=== PATIENT | female | born 1965 | race Two or more races ===

== ENCOUNTER 2017-08-21 07:26 | Inpatient (IN) | payer OTHER ==
[~2017-08-21] VITALS: Ht 160 cm; Wt 89.8 kg
[~2017-08-21 07:26] MED LIST: DOCU-109 PO; FERR-26 PO; IBUP-1060 PO; IBUPROFEN PO; LISI-338 PO; OXYC-323 PO
--- NOTE | 2017-08-21 07:49 | PHYS DOC ---
Past Medical History Past Medical History: No Pertinent History Past Surgical History: No Surgical History Alcohol Use: None Drug Use: None Adult General Chief Complaint Chief Complaint: GENERAL COMPLAINT HPI HPI Patient is a 52 year old female with a history of hypertension presents the ED complaining of dysuria and left back pain 3 days. Patient states that she has had dysuria for 8 days. Describes pain as sharp. Rates pain 8 out of 10. States she has been treated with Cipro 1 day by her PCP, Dr. Mcneal. States she vomited when she takes the medicine. Denies chest pain, shortness of breath, vaginal discharge/bleeding, fever, dizziness, syncope or hematuria. Review of Systems Review of Systems Constitutional: Denies fever or chills [] Eyes: Denies change in visual acuity, redness, or eye pain [] HENT: Denies nasal congestion or sore throat [] Respiratory: Denies cough or shortness of breath [] Cardiovascular: No additional information not addressed in HPI [] GI: Denies abdominal pain, nausea, vomiting, bloody stools or diarrhea [] : Complains of dysuria. Denies hematuria [] Musculoskeletal: Denies back pain or joint pain [] Integument: Denies rash or skin lesions [] Neurologic: Denies headache, focal weakness or sensory changes [] Endocrine: Denies polyuria or polydipsia [] Current Medications Current Medications Current Medications Medications (Trade) Dose Ordered Sig/Steve Start Time Stop Time Status Last Admin Dose Admin Ceftriaxone Sodium 50 ml @ 100 mls/hr 1X ONCE 08/21/17 09:30 08/21/17 09:59 DC 08/21/17 09:41 100 MLS/HR Fentanyl Citrate (Fentanyl 2ml Vial) 50 mcg 1X ONCE 08/21/17 08:00 08/21/17 08:01 DC 08/21/17 08:00 50 MCG Ondansetron HCl (Zofran) 4 mg 1X ONCE 08/21/17 08:00 08/21/17 08:01 DC 08/21/17 08:00 4 MG Sodium Chloride 1,000 ml @ 1,000 mls/hr 1X ONCE 08/21/17 09:15 08/21/17 10:14 DC 08/21/17 09:07 1,000 MLS/HR Allergies Allergies Allergies Coded Allergies Type Severity Reaction Last Updated Verified No Known Drug Allergies 01/04/16 No Physical Exam Physical Exam Constitutional: Well developed, well nourished, no acute distress, non-toxic appearance. [] HENT: Normocephalic, atraumatic, bilateral external ears normal, oropharynx moist, no oral exudates, nose normal. [] Eyes: PERRLA, EOMI, conjunctiva normal, no discharge. [] Neck: Normal range of motion, no tenderness, supple, no stridor. [] Cardiovascular:Heart rate regular rhythm, no murmur [] Lungs & Thorax: Bilateral breath sounds clear to auscultation [] Abdomen: Bowel sounds normal, soft, MILD SUPRAPUBIC TENDERNESS, no masses, no pulsatile masses. [] Skin: Warm, dry, no erythema, no rash. [] Back: No tenderness, no CVA tenderness. [] Extremities: No tenderness, no cyanosis, no clubbing, ROM intact, no edema. [] Neurologic: Alert and oriented X 3, normal motor function, normal sensory function, no focal deficits noted. [] Psychologic: Affect normal, judgement normal, mood normal. [] Current Patient Data Vital Signs Vital Signs Date Time Temp Pulse Resp B/P (MAP) Pulse Ox O2 Delivery O2 Flow Rate FiO2 08/21/17 09:30 80 18 90/55 (67) 95 Room Air 08/21/17 07:49 98.1 98.1 Lab Values Laboratory Tests Test 08/21/17 07:40 08/21/17 08:05 Urine Collection Type Unknown Urine Color Patti Urine Clarity Cloudy Urine pH 5.5 Urine Specific [place] 1.020 Urine Protein 100 mg/dL (NEG-TRACE) Urine Glucose (UA) Negative mg/dL (NEG) Urine Ketones (Stick) Negative mg/dL (NEG) Urine Blood Trace (NEG) Urine Nitrite Negative (NEG) Urine Bilirubin Negative (NEG) Urine Urobilinogen Dipstick 1.0 mg/dL (0.2 mg/dL) Urine Leukocyte Esterase Moderate (NEG) Urine RBC 0 /HPF (0-2) Urine WBC 5-10 /HPF (0-4) Urine Squamous Epithelial Cells Many /LPF Urine Bacteria Mod /HPF (0-FEW) Urine Test Negative (NEG) White Blood Count 16.0 x10^3/uL (4.0-11.0) H Red Blood Count 4.69 x10^6/uL (3.50-5.40) Hemoglobin 13.2 g/dL (12.0-15.5) Hematocrit 38.6 % (36.0-47.0) Mean Corpuscular Volume 82 fL (79-100) Mean Corpuscular Hemoglobin 28 pg (25-35) Mean Corpuscular Hemoglobin Concent 34 g/dL (31-37) Red Cell Distribution Width 14.7 % (11.5-14.5) H Platelet Count 183 x10^3/uL (140-400) Neutrophils (%) (Auto) 86 % (31-73) H Lymphocytes (%) (Auto) 3 % (24-48) L Monocytes (%) (Auto) 11 % (0-9) H Eosinophils (%) (Auto) 0 % (0-3) Basophils (%) (Auto) 0 % (0-3) Neutrophils # (Auto) 13.8 x10^3uL (1.8-7.7) H Lymphocytes # (Auto) 0.5 x10^3/uL (1.0-4.8) L Monocytes # (Auto) 1.7 x10^3/uL (0.0-1.1) H Eosinophils # (Auto) 0.0 x10^3/uL (0.0-0.7) Basophils # (Auto) 0.0 x10^3/uL (0.0-0.2) Segmented Neutrophils % 80 % (35-66) H Band Neutrophils % 7 % (0-9) Lymphocytes % 4 % (24-48) L Monocytes % 9 % (0-10) Platelet Estimate Adequate (ADEQUATE) Sodium Level 135 mmol/L (136-145) L Potassium Level 3.8 mmol/L (3.5-5.1) Chloride Level 97 mmol/L (98-107) L Carbon Dioxide Level 27 mmol/L (21-32) Anion Gap 11 (6-14) Blood Urea Nitrogen 36 mg/dL (7-20) H Creatinine 2.3 mg/dL (0.6-1.0) H Estimated GFR (Cockcroft-Gault) 22.4 BUN/Creatinine Ratio 16 (6-20) Glucose Level 109 mg/dL (70-99) H Calcium Level 8.7 mg/dL (8.5-10.1) Total Bilirubin 1.1 mg/dL (0.2-1.0) H Aspartate Amino Transferase (AST) 66 U/L (15-37) H Alanine Aminotransferase (ALT) 35 U/L (14-59) Alkaline Phosphatase 96 U/L (46-116) Total Protein 7.8 g/dL (6.4-8.2) Albumin 2.9 g/dL (3.4-5.0) L Albumin/Globulin Ratio 0.6 (1.0-1.7) L Laboratory Tests 08/21/17 08:05 Laboratory Tests 08/21/17 08:05 EKG EKG [] Radiology/Procedures Radiology/Procedures [] Course & Med Decision Making Course & Med Decision Making Pertinent Labs and Imaging studies reviewed. (See chart for details) []Patient given Rocephin and 2 L of fluids in ED. Patient improved. Patient resting comfortably at this time. Discussed case with patient's PCP, Dr. Mcneal. Agrees to admission and further management patient. Patient stable for admission. Dragon Disclaimer Dragon Disclaimer This electronic medical record was generated, in whole or in part, using a voice recognition dictation system. Departure Departure Impression: Primary Impression: Pyelonephritis Disposition: ADMITTED INPATIENT Admitting Physician: Wei Mcneal Referrals: WEI MCNEAL MD (PCP) BRENDA TYLER Aug 21, 2017 07:49
[2017-08-21] MEDS ORDERED: fentaNYL PF VIAL 100 MCG/2 ML VIAL IV ONE (08:00)
[2017-08-21] MEDS ORDERED: ONDANSETRON PF 4 MG/2 ML VIAL. IV ONE (08:00)
[2017-08-21 08:12] LABS: BILIRUBIN,URINE NEGATIVE (NEG); GLUCOSE,URINE NEGATIVE (NEG); NITRITE,URINE NEGATIVE (NEG); PH,URINE 5.5; PROTEIN,URINE 100 mg/dL (NEG-TRACE)
[2017-08-21 08:24] LABS: BACTERIA,URINE MOD /HPF (0-FEW); RBC,URINE 0 /HPF (0-2)
[2017-08-21 08:25] LABS: SQUAMOUS EPITHELIAL CELL,UR MANY /LPF
[2017-08-21 08:31] LABS: BASO % 0 % (0-3); CALCIUM 8.7 mg/dL (8.5-10.1); CREATININE 2.3 mg/dL (0.6-1.0); EOS % 0 % (0-3); GFR 22.4; HEMATOCRIT 38.6 % (36.0-47.0); HEMOGLOBIN 13.2 g/dL (12.0-15.5); LYMPH # 0.5 x10^3/uL (1.0-4.8); LYMPH % 3 % (24-48); MEAN CORPUSCULAR HEMOGLOBIN 28 pg (25-35); MEAN CORPUSCULAR HGB CONC 34 g/dL (31-37); MEAN CORPUSCULAR VOLUME 82 fL (79-100); MONO % 11 % (0-9); NEUT % 86 % (31-73); PLATELET COUNT 183 x10^3/uL (140-400); POTASSIUM 3.8 mmol/L (3.5-5.1); RED BLOOD COUNT 4.69 x10^6/uL (3.50-5.40); RED CELL DISTRIBUTION WIDTH 14.7 % (11.5-14.5)
[2017-08-21 08:38] LABS: ALBUMIN 2.9 g/dL (3.4-5.0); ALBUMIN/GLOBULIN RATIO 0.6 (1.0-1.7); TOTAL BILIRUBIN 1.1 mg/dL (0.2-1.0); TOTAL PROTEIN 7.8 g/dL (6.4-8.2)
[2017-08-21] MEDS ORDERED: IV NORMAL SALINE 1000ML BAG 1,000 ML IV ONE (09:15)
[2017-08-21 09:55] LABS: NEG OBC UR NEG; POS OBC UR POS
[2017-08-21] MEDS ORDERED: ONDANSETRON PF 4 MG/2 ML VIAL. IV PRN (10:45)
[2017-08-21 10:54] LABS: PLT ESTIMATE ADEQUATE (ADEQUATE)
[2017-08-21 11:15] VITALS: BP 82/40
[2017-08-21 11:30] VITALS: BP 82/40
[2017-08-21] MEDS ORDERED: LISI10TA2 PO (11:33)
[2017-08-21] MEDS ORDERED: FERR-26 PO (11:33)
[2017-08-21] MEDS ORDERED: DICL75TA PO (11:33)
[2017-08-21] MEDS ORDERED: IV NORMAL SALINE 1000ML BAG 1,000 ML IV SCH (11:50)
[2017-08-21] MEDS ORDERED: IV NORMAL SALINE 500ML BAG 500 ML IV ONE (12:30)
[2017-08-21 14:30] VITALS: BP 83/42
[2017-08-21] MEDS: HYDROcodone/APAP 5/325MG 1 TAB TABLET PO PRN ×2 (14:31→22:21)
[2017-08-21 19:00] VITALS: BP 95/54
--- NOTE | 2017-08-21 19:31 | HP ---
ADMIT DATE: 08/21/2017 CHIEF COMPLAINT: Left-sided back pain and dysuria as well as fatigue and dizziness. HISTORY OF PRESENT ILLNESS AND HOSPITAL COURSE: This patient is a 52-year-old female who complains of sweating and dizziness for 3-4 days prior to admission, she was seen in the office, was found to have UTI and possible pyelonephritis. She was treated with p.o. Cipro. Unfortunately, she was unable to tolerate this medication and unable to tolerate p.o. well. Therefore, she was deferred to the Emergency Room where she was found to have significant evidence of pyelonephritis as well as ongoing acute renal failure due to prerenal azotemia. Due to severity of symptoms and the patient's inability to take p.o. medication, she was admitted for IV fluids and IV antibiotics. PAST MEDICAL HISTORY: Significant for: 1. Hypertension. 2. Anemia. MEDICATIONS ON ADMISSION: Lisinopril 10 mg daily, diclofenac 75 mg b.i.d., iron 325 mg daily. PAST SURGICAL HISTORY: Significant for tubal ligation. FAMILY HISTORY: Significant for mother who suffered with anemia, is now and the father who is with history of cirrhosis. SOCIAL HISTORY: The patient has never smoked. She does not use alcohol. She lives with her spouse and children. 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 The patient is status post bilateral tubal ligation. REVIEW OF SYSTEMS: Significant for cold, chills, hot flashes, dizziness, dysuria and flank pain. She has had some dyspepsia and nausea, but no diarrhea. She denies cough or congestion. PHYSICAL EXAMINATION: GENERAL: This is a well-nourished, well-developed, female in mild distress. She is alert and oriented x 3. HEENT: Benign. NECK: Supple, without JVD or bruit. CARDIAC: Regular rate and rhythm. LUNGS: Clear. ABDOMEN: Soft with tenderness in the area. She has significant tenderness in the flank area on the right and left with left slightly greater. EXTREMITIES: 2+ pulses without significant edema. NEUROLOGIC: Intact. ASSESSMENT: 1. Pyelonephritis. 2. Suspected sepsis. 3. Acute renal failure. 4. Mild protein malnutrition. PLAN: To proceed with IV fluids, IV antibiotics and monitor the patient's symptoms. NETO TRAN MD DR: Gemma JOB#: [id number] / [id number]
[2017-08-21 23:00] VITALS: BP 110/52
[2017-08-22 03:00] VITALS: BP 93/48
[2017-08-22 06:14] LABS: BASO % 0 % (0-3); EOS % 0 % (0-3); HEMATOCRIT 34.5 % (36.0-47.0); HEMOGLOBIN 11.6 g/dL (12.0-15.5); LYMPH # 1.1 x10^3/uL (1.0-4.8); LYMPH % 9 % (24-48); MEAN CORPUSCULAR HEMOGLOBIN 28 pg (25-35); MEAN CORPUSCULAR HGB CONC 34 g/dL (31-37); MEAN CORPUSCULAR VOLUME 83 fL (79-100); MONO % 15 % (0-9); NEUT % 77 % (31-73); PLATELET COUNT 184 x10^3/uL (140-400); RED BLOOD COUNT 4.16 x10^6/uL (3.50-5.40); WHITE BLOOD COUNT 12.4 x10^3/uL (4.0-11.0)
[2017-08-22 06:37] LABS: ALBUMIN 2.3 g/dL (3.4-5.0); ALBUMIN/GLOBULIN RATIO 0.5 (1.0-1.7); CREATININE 1.1 mg/dL (0.6-1.0); GFR 52.6; POTASSIUM 3.8 mmol/L (3.5-5.1); TOTAL BILIRUBIN 0.6 mg/dL (0.2-1.0); TOTAL PROTEIN 6.5 g/dL (6.4-8.2)
[2017-08-22 07:00] VITALS: BP 108/56
[2017-08-22] MEDS: HYDROcodone/APAP 5/325MG 1 TAB TABLET PO PRN (08:04)
[2017-08-22 11:00] VITALS: BP 112/70
--- NOTE | 2017-08-22 12:58 | PDOC ---
PROGRESS NOTES Subjective Subjective Patient feels better but still having flank pain. urine clx still pending and low grade fever ongoing. Objective Objective Vital Signs Date Time Temp Pulse Resp B/P (MAP) Pulse Ox O2 Delivery O2 Flow Rate FiO2 08/22/17 11:00 97.9 76 18 112/70 (84) 97 Room Air 97.9 Intake and Output 08/23/17 07:00 Intake Total 150 ml Output Total 200 ml Balance -50 ml Intake Oral 100 ml IV Total 50 ml Output Urine Total 200 ml Physical Exam Abdomen: Normal bowel sounds, Other (bilateral flank pain) Heart: Regular rate Extremities: No edema General: Alert Assessment Assessment 1. Pyelonephritis. 2. Suspected sepsis. 3. Acute renal failure. 4. Mild protein malnutrition. Plan Plan of Care Await urine Clx Check renal sono continue antibx and fluids Comment Review of Relevant I have reviewed the following items jayson (where applicable) has been applied. Labs Laboratory Tests Test 08/21/17 07:40 08/21/17 08:05 08/21/17 09:52 08/22/17 04:25 Urine Collection Type Unknown Urine Color Patti Urine Clarity Cloudy Urine pH 5.5 Urine Specific [place] 1.020 Urine Protein 100 mg/dL (NEG-TRACE) Urine Glucose (UA) Negative mg/dL (NEG) Urine Ketones (Stick) Negative mg/dL (NEG) Urine Blood Trace (NEG) Urine Nitrite Negative (NEG) Urine Bilirubin Negative (NEG) Urine Urobilinogen Dipstick 1.0 mg/dL (0.2 mg/dL) Urine Leukocyte Esterase Moderate (NEG) Urine RBC 0 /HPF (0-2) Urine WBC 5-10 /HPF (0-4) Urine Squamous Epithelial Cells Many /LPF Urine Bacteria Mod /HPF (0-FEW) Urine Test Negative (NEG) White Blood Count 16.0 x10^3/uL (4.0-11.0) 12.4 x10^3/uL (4.0-11.0) Red Blood Count 4.69 x10^6/uL (3.50-5.40) 4.16 x10^6/uL (3.50-5.40) Hemoglobin 13.2 g/dL (12.0-15.5) 11.6 g/dL (12.0-15.5) Hematocrit 38.6 % (36.0-47.0) 34.5 % (36.0-47.0) Mean Corpuscular Volume 82 fL (79-100) 83 fL (79-100) Mean Corpuscular Hemoglobin 28 pg (25-35) 28 pg (25-35) Mean Corpuscular Hemoglobin Concent 34 g/dL (31-37) 34 g/dL (31-37) Red Cell Distribution Width 14.7 % (11.5-14.5) 15.0 % (11.5-14.5) Platelet Count 183 x10^3/uL (140-400) 184 x10^3/uL (140-400) Neutrophils (%) (Auto) 86 % (31-73) 77 % (31-73) Lymphocytes (%) (Auto) 3 % (24-48) 9 % (24-48) Monocytes (%) (Auto) 11 % (0-9) 15 % (0-9) Eosinophils (%) (Auto) 0 % (0-3) 0 % (0-3) Basophils (%) (Auto) 0 % (0-3) 0 % (0-3) Neutrophils # (Auto) 13.8 x10^3uL (1.8-7.7) 9.5 x10^3uL (1.8-7.7) Lymphocytes # (Auto) 0.5 x10^3/uL (1.0-4.8) 1.1 x10^3/uL (1.0-4.8) Monocytes # (Auto) 1.7 x10^3/uL (0.0-1.1) 1.8 x10^3/uL (0.0-1.1) Eosinophils # (Auto) 0.0 x10^3/uL (0.0-0.7) 0.0 x10^3/uL (0.0-0.7) Basophils # (Auto) 0.0 x10^3/uL (0.0-0.2) 0.0 x10^3/uL (0.0-0.2) Segmented Neutrophils % 80 % (35-66) Band Neutrophils % 7 % (0-9) Lymphocytes % 4 % (24-48) Monocytes % 9 % (0-10) Platelet Estimate Adequate (ADEQUATE) Sodium Level 135 mmol/L (136-145) 137 mmol/L (136-145) Potassium Level 3.8 mmol/L (3.5-5.1) 3.8 mmol/L (3.5-5.1) Chloride Level 97 mmol/L (98-107) 103 mmol/L (98-107) Carbon Dioxide Level 27 mmol/L (21-32) 26 mmol/L (21-32) Anion Gap 11 (6-14) 8 (6-14) Blood Urea Nitrogen 36 mg/dL (7-20) 23 mg/dL (7-20) Creatinine 2.3 mg/dL (0.6-1.0) 1.1 mg/dL (0.6-1.0) Estimated GFR (Cockcroft-Gault) 22.4 52.6 BUN/Creatinine Ratio 16 (6-20) 21 (6-20) Glucose Level 109 mg/dL (70-99) 93 mg/dL (70-99) Calcium Level 8.7 mg/dL (8.5-10.1) 8.0 mg/dL (8.5-10.1) Total Bilirubin 1.1 mg/dL (0.2-1.0) 0.6 mg/dL (0.2-1.0) Aspartate Amino Transf (AST/SGOT) 66 U/L (15-37) 47 U/L (15-37) Alanine Aminotransferase (ALT/SGPT) 35 U/L (14-59) 35 U/L (14-59) Alkaline Phosphatase 96 U/L (46-116) 110 U/L (46-116) Total Protein 7.8 g/dL (6.4-8.2) 6.5 g/dL (6.4-8.2) Albumin 2.9 g/dL (3.4-5.0) 2.3 g/dL (3.4-5.0) Albumin/Globulin Ratio 0.6 (1.0-1.7) 0.5 (1.0-1.7) Lactic Acid Level 0.8 mmol/L (0.4-2.0) Laboratory Tests Test 08/22/17 04:25 White Blood Count 12.4 x10^3/uL (4.0-11.0) Red Blood Count 4.16 x10^6/uL (3.50-5.40) Hemoglobin 11.6 g/dL (12.0-15.5) Hematocrit 34.5 % (36.0-47.0) Mean Corpuscular Volume 83 fL (79-100) Mean Corpuscular Hemoglobin 28 pg (25-35) Mean Corpuscular Hemoglobin Concent 34 g/dL (31-37) Red Cell Distribution Width 15.0 % (11.5-14.5) Platelet Count 184 x10^3/uL (140-400) Neutrophils (%) (Auto) 77 % (31-73) Lymphocytes (%) (Auto) 9 % (24-48) Monocytes (%) (Auto) 15 % (0-9) Eosinophils (%) (Auto) 0 % (0-3) Basophils (%) (Auto) 0 % (0-3) Neutrophils # (Auto) 9.5 x10^3uL (1.8-7.7) Lymphocytes # (Auto) 1.1 x10^3/uL (1.0-4.8) Monocytes # (Auto) 1.8 x10^3/uL (0.0-1.1) Eosinophils # (Auto) 0.0 x10^3/uL (0.0-0.7) Basophils # (Auto) 0.0 x10^3/uL (0.0-0.2) Sodium Level 137 mmol/L (136-145) Potassium Level 3.8 mmol/L (3.5-5.1) Chloride Level 103 mmol/L (98-107) Carbon Dioxide Level 26 mmol/L (21-32) Anion Gap 8 (6-14) Blood Urea Nitrogen 23 mg/dL (7-20) Creatinine 1.1 mg/dL (0.6-1.0) Estimated GFR (Cockcroft-Gault) 52.6 BUN/Creatinine Ratio 21 (6-20) Glucose Level 93 mg/dL (70-99) Calcium Level 8.0 mg/dL (8.5-10.1) Total Bilirubin 0.6 mg/dL (0.2-1.0) Aspartate Amino Transf (AST/SGOT) 47 U/L (15-37) Alanine Aminotransferase (ALT/SGPT) 35 U/L (14-59) Alkaline Phosphatase 110 U/L (46-116) Total Protein 6.5 g/dL (6.4-8.2) Albumin 2.3 g/dL (3.4-5.0) Albumin/Globulin Ratio 0.5 (1.0-1.7) Microbiology 08/21/17 Blood Culture - Preliminary, Resulted NO GROWTH AFTER 1 DAY Medications Current Medications Fentanyl Citrate (Fentanyl 2ml Vial) 50 mcg 1X ONCE IV Last administered on 08:00; Start 08/21/17 at 08:00; Stop 08/21/17 at 08:01; Status DC Ondansetron HCl (Zofran) 4 mg 1X ONCE IV Last administered on 08/21/17 08:00 ; Start 08/21/17 at 08:00; Stop 08/21/17 at 08:01; Status DC Sodium Chloride 1,000 ml @ 1,000 mls/hr 1X ONCE IV Last administered on 09:07; Start 08/21/17 at 09:15; Stop 08/21/17 at 10:14; Status DC Ceftriaxone Sodium 50 ml @ 100 mls/hr 1X ONCE IV Last administered on 09:41; Start 08/21/17 at 09:30; Stop 08/21/17 at 09:59; Status DC Ondansetron HCl (Zofran) 4 mg PRN Q8HRS PRN IV NAUSEA/VOMITING; Start 08/21/17 at 10:45; Stop 08/22/17 at 10:44; Status DC Sodium Chloride 1,000 ml @ 125 mls/hr Q8H IV Last administered on 08/21/17 14 :32; Start 08/21/17 at 11:50; Stop 08/21/17 at 19:49; Status DC Acetaminophen/ Hydrocodone Bitart (Lortab 5/325) 1 tab PRN Q4HRS PRN PO MILD PAIN, 2ND CHOICE Last administered on 08/21/17 14:31; Start 08/21/17 at 12:00 Acetaminophen/ Hydrocodone Bitart (Lortab 5/325) 2 tab PRN Q4HRS PRN PO MODERATE PAIN, SEVERE PAIN Last administered on 08/22/17 08:04; Start 08/21/17 at 12:00 Ceftriaxone Sodium 1 gm/ Sodium Chloride 50 ml @ 100 mls/hr Q24H IV Last administered on 08/22/17 08:41; Start 08/22/17 at 09:00 Sodium Chloride 500 ml @ 500 mls/hr 1X ONCE IV Last administered on 12:29; Start 08/21/17 at 12:30; Stop 08/21/17 at 13:29; Status DC Active Scripts Active Colace (Docusate Sodium) 100 Mg Capsule 1 Cap PO BID Reported Ferrous Sulfate 325 Mg Tablet 325 Mg PO DAILY Diclofenac Sodium 75 Mg Tablet. 1 Tab PO BID Lisinopril 10 Mg Tablet 1 Tab PO DAILY Vitals/I & O Vital Sign - Last 24 Hours 08/21/17 08/21/17 08/21/17 08/21/17 14:30 14:31 15:31 19:00 Temp 97.9 100.8 97.9 100.8 Pulse 94 98 Resp 18 18 18 18 B/P (MAP) 83/42 (56) 95/54 (68) Pulse Ox 96 97 O2 Delivery Room Air Room Air 08/21/17 08/21/17 08/21/17 08/21/17 20:00 22:21 23:00 23:34 Temp 101.8 101.8 Pulse 99 Resp 17 18 B/P (MAP) 110/52 (71) Pulse Ox 97 94 94 O2 Delivery Room Air Room Air Room Air Room Air 08/22/17 08/22/17 08/22/17 08/22/17 03:00 07:00 08:04 09:04 Temp 97.9 98.1 97.9 98.1 Pulse 79 79 Resp 18 18 18 18 B/P (MAP) 93/48 (63) 108/56 (73) Pulse Ox 95 98 O2 Delivery Room Air Room Air 08/22/17 11:00 Temp 97.9 97.9 Pulse 76 Resp 18 B/P (MAP) 112/70 (84) Pulse Ox 97 O2 Delivery Room Air Intake and Output 08/22/17 08/22/17 08/23/17 15:00 23:00 07:00 Intake Total 150 ml Output Total 200 ml Balance -50 ml NETO TRAN MD Aug 22, 2017 12:57
[2017-08-22] MEDS: IV NORMAL SALINE 1000ML BAG 1,000 ML IV SCH ×2 (13:05→20:39)
[2017-08-22 14:51] VITALS: BP 114/71
--- NOTE | 2017-08-22 16:03 | RAD ---
Examination: Ultrasound kidneys History: History of pyelonephritis. Comparison: None available Findings: The right kidney is 13.0 x 6.6 x 5.5 cm. The left kidney measures 12.5 x 6.8 x 5.3 cm. Urinary bladder is nondistended. There is incidental heterogeneous echogenicity measuring 6.2 x 6.7 x 6.3 cm identified in the region of the liver with vascular flow within. Impression: 1. Incidental masslike echogenicity with vascular flow identified in the region of the liver measuring 6.7 cm could be liver mass or suprarenal mass. Recommend cross-sectional imaging with multiphase CT scan for further evaluation. Patient's nurse was informed at time of dictation.
[2017-08-22 19:00] VITALS: BP 119/74
[2017-08-22 23:00] VITALS: BP 116/58
[2017-08-23] MEDS: HYDROcodone/APAP 5/325MG 1 TAB TABLET PO PRN ×4 (00:26→19:27)
[2017-08-23 03:00] VITALS: BP 108/76
[2017-08-23] MEDS: IV NORMAL SALINE 1000ML BAG 1,000 ML IV SCH ×3 (05:41→22:19)
[2017-08-23] MEDS ORDERED: CONTRAST GIVEN MC PRN ×2 (06:30→09:30)
[2017-08-23 07:00] VITALS: BP 150/76
[2017-08-23] MEDS ORDERED: IOHEXOL 300 MG/ML 75 ML VIAL IV ONE ×3 (07:00→09:15)
--- NOTE | 2017-08-23 07:21 | PDOC ---
PROGRESS NOTES Subjective Subjective Patient feels better but continues to have low grade fever. Renal sono shows possible adrenal mass vs. liver mass 6.[address] planned for today. Urine Clx from office shows E. Coli resistant to Bactrim but sensitive to Rocephin. Objective Objective Vital Signs Date Time Temp Pulse Resp B/P (MAP) Pulse Ox O2 Delivery O2 Flow Rate FiO2 08/23/17 03:00 98.6 72 18 108/76 (87) 98 Room Air 98.6 Physical Exam Abdomen: Normal bowel sounds Heart: Regular rate Extremities: No edema General: Alert Lungs: Clear to auscultation Assessment Assessment 1. Pyelonephritis. 2. Adrenal mass vs Liver mass 3. Acute renal failure. 4. Mild protein malnutrition. 5. Suspected sepsis- resolved. Plan Plan of Care Contine IV antibx until afeb greater than 24 hrs then switch to PO Await CT result Urology consult if available Comment Review of Relevant I have reviewed the following items jayson (where applicable) has been applied. Labs Laboratory Tests Test 08/21/17 07:40 08/21/17 08:05 08/21/17 09:52 08/22/17 04:25 Urine Collection Type Unknown Urine Color Patti Urine Clarity Cloudy Urine pH 5.5 Urine Specific [place] 1.020 Urine Protein 100 mg/dL (NEG-TRACE) Urine Glucose (UA) Negative mg/dL (NEG) Urine Ketones (Stick) Negative mg/dL (NEG) Urine Blood Trace (NEG) Urine Nitrite Negative (NEG) Urine Bilirubin Negative (NEG) Urine Urobilinogen Dipstick 1.0 mg/dL (0.2 mg/dL) Urine Leukocyte Esterase Moderate (NEG) Urine RBC 0 /HPF (0-2) Urine WBC 5-10 /HPF (0-4) Urine Squamous Epithelial Cells Many /LPF Urine Bacteria Mod /HPF (0-FEW) Urine Test Negative (NEG) White Blood Count 16.0 x10^3/uL (4.0-11.0) 12.4 x10^3/uL (4.0-11.0) Red Blood Count 4.69 x10^6/uL (3.50-5.40) 4.16 x10^6/uL (3.50-5.40) Hemoglobin 13.2 g/dL (12.0-15.5) 11.6 g/dL (12.0-15.5) Hematocrit 38.6 % (36.0-47.0) 34.5 % (36.0-47.0) Mean Corpuscular Volume 82 fL (79-100) 83 fL (79-100) Mean Corpuscular Hemoglobin 28 pg (25-35) 28 pg (25-35) Mean Corpuscular Hemoglobin Concent 34 g/dL (31-37) 34 g/dL (31-37) Red Cell Distribution Width 14.7 % (11.5-14.5) 15.0 % (11.5-14.5) Platelet Count 183 x10^3/uL (140-400) 184 x10^3/uL (140-400) Neutrophils (%) (Auto) 86 % (31-73) 77 % (31-73) Lymphocytes (%) (Auto) 3 % (24-48) 9 % (24-48) Monocytes (%) (Auto) 11 % (0-9) 15 % (0-9) Eosinophils (%) (Auto) 0 % (0-3) 0 % (0-3) Basophils (%) (Auto) 0 % (0-3) 0 % (0-3) Neutrophils # (Auto) 13.8 x10^3uL (1.8-7.7) 9.5 x10^3uL (1.8-7.7) Lymphocytes # (Auto) 0.5 x10^3/uL (1.0-4.8) 1.1 x10^3/uL (1.0-4.8) Monocytes # (Auto) 1.7 x10^3/uL (0.0-1.1) 1.8 x10^3/uL (0.0-1.1) Eosinophils # (Auto) 0.0 x10^3/uL (0.0-0.7) 0.0 x10^3/uL (0.0-0.7) Basophils # (Auto) 0.0 x10^3/uL (0.0-0.2) 0.0 x10^3/uL (0.0-0.2) Segmented Neutrophils % 80 % (35-66) Band Neutrophils % 7 % (0-9) Lymphocytes % 4 % (24-48) Monocytes % 9 % (0-10) Platelet Estimate Adequate (ADEQUATE) Sodium Level 135 mmol/L (136-145) 137 mmol/L (136-145) Potassium Level 3.8 mmol/L (3.5-5.1) 3.8 mmol/L (3.5-5.1) Chloride Level 97 mmol/L (98-107) 103 mmol/L (98-107) Carbon Dioxide Level 27 mmol/L (21-32) 26 mmol/L (21-32) Anion Gap 11 (6-14) 8 (6-14) Blood Urea Nitrogen 36 mg/dL (7-20) 23 mg/dL (7-20) Creatinine 2.3 mg/dL (0.6-1.0) 1.1 mg/dL (0.6-1.0) Estimated GFR (Cockcroft-Gault) 22.4 52.6 BUN/Creatinine Ratio 16 (6-20) 21 (6-20) Glucose Level 109 mg/dL (70-99) 93 mg/dL (70-99) Calcium Level 8.7 mg/dL (8.5-10.1) 8.0 mg/dL (8.5-10.1) Total Bilirubin 1.1 mg/dL (0.2-1.0) 0.6 mg/dL (0.2-1.0) Aspartate Amino Transf (AST/SGOT) 66 U/L (15-37) 47 U/L (15-37) Alanine Aminotransferase (ALT/SGPT) 35 U/L (14-59) 35 U/L (14-59) Alkaline Phosphatase 96 U/L (46-116) 110 U/L (46-116) Total Protein 7.8 g/dL (6.4-8.2) 6.5 g/dL (6.4-8.2) Albumin 2.9 g/dL (3.4-5.0) 2.3 g/dL (3.4-5.0) Albumin/Globulin Ratio 0.6 (1.0-1.7) 0.5 (1.0-1.7) Lactic Acid Level 0.8 mmol/L (0.4-2.0) Microbiology 08/21/17 Blood Culture - Preliminary, Resulted NO GROWTH AFTER 1 DAY 08/21/17 Urine Culture - Preliminary, Resulted 08/21/17 Urine Culture Result 1 (SARAH) - Preliminary, Resulted Medications Current Medications Fentanyl Citrate (Fentanyl 2ml Vial) 50 mcg 1X ONCE IV Last administered on 08:00; Start 08/21/17 at 08:00; Stop 08/21/17 at 08:01; Status DC Ondansetron HCl (Zofran) 4 mg 1X ONCE IV Last administered on 08/21/17 08:00 ; Start 08/21/17 at 08:00; Stop 08/21/17 at 08:01; Status DC Sodium Chloride 1,000 ml @ 1,000 mls/hr 1X ONCE IV Last administered on 09:07; Start 08/21/17 at 09:15; Stop 08/21/17 at 10:14; Status DC Ceftriaxone Sodium 50 ml @ 100 mls/hr 1X ONCE IV Last administered on 09:41; Start 08/21/17 at 09:30; Stop 08/21/17 at 09:59; Status DC Ondansetron HCl (Zofran) 4 mg PRN Q8HRS PRN IV NAUSEA/VOMITING; Start 08/21/17 at 10:45; Stop 08/22/17 at 10:44; Status DC Sodium Chloride 1,000 ml @ 125 mls/hr Q8H IV Last administered on 08/21/17 14 :32; Start 08/21/17 at 11:50; Stop 08/21/17 at 19:49; Status DC Acetaminophen/ Hydrocodone Bitart (Lortab 5/325) 1 tab PRN Q4HRS PRN PO MILD PAIN, 2ND CHOICE Last administered on 08/23/17 00:26; Start 08/21/17 at 12:00 Acetaminophen/ Hydrocodone Bitart (Lortab 5/325) 2 tab PRN Q4HRS PRN PO MODERATE PAIN, SEVERE PAIN Last administered on 08/22/17 08:04; Start 08/21/17 at 12:00 Ceftriaxone Sodium 1 gm/ Sodium Chloride 50 ml @ 100 mls/hr Q24H IV Last administered on 08/22/17 08:41; Start 08/22/17 at 09:00 Sodium Chloride 500 ml @ 500 mls/hr 1X ONCE IV Last administered on 12:29; Start 08/21/17 at 12:30; Stop 08/21/17 at 13:29; Status DC Sodium Chloride 1,000 ml @ 125 mls/hr Q8H IV Last administered on 08/23/17t 05 :41; Start 08/22/17 at 13:00 Iohexol (Omnipaque 300 Mg/ml) 60 ml 1X ONCE IV ; Start 08/23/17 at 07:00; Stop 08/23/17 at 07:01; Status DC Info (Do NOT chart on this entry -- for MONITORING) 1 each PRN DAILY PRN MC SEE COMMENTS; Start 08/23/17 at 06:30; Stop 08/25/17 at 06:29 Active Scripts Active Colace (Docusate Sodium) 100 Mg Capsule 1 Cap PO BID Reported Ferrous Sulfate 325 Mg Tablet 325 Mg PO DAILY Diclofenac Sodium 75 Mg Tablet. 1 Tab PO BID Lisinopril 10 Mg Tablet 1 Tab PO DAILY Vitals/I & O Vital Sign - Last 24 Hours 08/22/17 08/22/17 08/22/17 08/22/17 08:04 09:04 11:00 14:51 Temp 97.9 97.9 97.9 97.9 Pulse 76 71 Resp 18 18 18 18 B/P (MAP) 112/70 (84) 114/71 (85) Pulse Ox 97 100 O2 Delivery Room Air Room Air 08/22/17 08/22/17 08/22/17 08/23/17 19:00 20:00 23:00 00:26 Temp 100.2 100.0 100.2 100.0 Pulse 86 85 Resp 18 18 20 B/P (MAP) 119/74 (89) 116/58 (77) Pulse Ox 90 93 93 O2 Delivery Room Air Room Air Room Air Room Air 08/23/17 08/23/17 01:26 03:00 Temp 98.6 98.6 Pulse 72 Resp 18 18 B/P (MAP) 108/76 (87) Pulse Ox 93 98 O2 Delivery Room Air Room Air NETO TRAN MD Aug 23, 2017 07:21
--- NOTE | 2017-08-23 10:28 | RAD ---
EXAM: CT abdomen/pelvis with and without contrast. HISTORY: Right upper quadrant mass. TECHNIQUE: Computed tomography of the abdomen and pelvis was performed before and after the intravenous administration of 60 mL Isovue-370. COMPARISON: 08/22/2017. FINDINGS: Lung windows through the visualized portions of the bases reveal mild atelectasis. Bone windows reveal no suspicious lesions. A heterogeneous mass in the right suprarenal territory appears to arise from the right adrenal gland. It measures 7.5 x 6.2 cm. Precontrasted measures 32 Hounsfield units. Postcontrast, 48 Hounsfield units. With a 15 minute delay, 45 Hounsfield units. Not including low-attenuation region suggesting degeneration or necrosis, the signal are 39 Hounsfield units, 56 Hounsfield units and 60 Hounsfield units, respectively. These findings imply minimal washout and are not diagnostic of a benign adenoma. No inferior vena cava invasion is identified. The most superior aspect of the hepatic dome is excluded. No liver lesions are seen. The spleen is mildly enlarged at 13.4 cm. The left adrenal gland is unremarkable. The pancreas and gallbladder appear normal. The right kidney appears to enhance slightly less avidly than the left. There is mild right perinephric stranding. There is no hydronephrosis. There are no pathologically enlarged lymph nodes. The appendix is not inflamed. Stool throughout the colon is consistent with constipation. A small umbilical hernia contains only fat. IMPRESSION: 1. 7.5 cm right indeterminate adrenal mass. Considerations include metastatic disease, a large atypical adenoma, pheochromocytoma, or adrenocortical carcinoma. No other metastatic disease is identified. Correlate for hypertension, and with serologic and urinary metabolites to exclude pheochromocytoma. If that is been ruled out, percutaneous biopsy could establish tissue diagnosis. Surgical consultation is recommended at this size. 2. Correlate for right pyelonephritis. No hydronephrosis. 3. Correlate for constipation. 4. Small umbilical hernia containing only fat. *One or more of the following individualized dose reduction techniques were utilized for this examination: 1. Automated exposure control. 2. Adjustment of the mA and/or kV according to patient size. 3. Use of iterative reconstruction technique.
[2017-08-23 11:00] VITALS: BP 154/85
[2017-08-23 15:00] VITALS: BP 144/87
[2017-08-23 19:00] VITALS: BP_SYST 112; BP_SYST 149; BP_DIAS 64; BP_DIAS 75
[2017-08-23 23:00] VITALS: BP 129/81
[2017-08-24] VITALS (7 sets, daily range): BP systolic 130–171; BP diastolic 64–123
[2017-08-24] MEDS: HYDROcodone/APAP 5/325MG 1 TAB TABLET PO PRN ×4 (02:15→23:00)
[2017-08-24] MEDS: IV NORMAL SALINE 1000ML BAG 1,000 ML IV SCH ×3 (05:59→20:13)
--- NOTE | 2017-08-24 08:36 | PDOC ---
SUBJECTIVE Subjective Pt's daughter provides translation this morning. Pt is overall doing better. Had some nausea and vomiting with contrast yesterday. Having some lower abdominal pain but it is improved since she was admitted to the hospital. She is interested in meeting with surgeon to today OBJECTIVE Vital Signs Vital Signs Date Time Temp Pulse Resp B/P (MAP) Pulse Ox O2 Delivery O2 Flow Rate FiO2 08/24/17 03:15 18 99 Room Air 08/24/17 03:02 98.3 84 20 130/73 (92) 99 Room Air 98.3 08/24/17 02:15 20 99 Room Air 08/23/17 23:00 97.8 69 20 129/81 (97) 99 Room Air 97.8 08/23/17 20:00 Room Air 08/23/17 19:27 20 97 Room Air 08/23/17 19:00 97.9 77 20 149/75 (99) 98 Room Air 97.9 08/23/17 19:00 97.6 81 20 112/64 (80) 93 Room Air 97.6 08/23/17 15:00 97.9 86 17 144/87 (106) 97 Room Air 97.9 08/23/17 14:21 Room Air 08/23/17 11:00 97.7 73 17 154/85 (108) 98 Room Air 97.7 PHYSICAL EXAM Physical Exam GEN: NAD, AOx3 HEENT: MMM, EOMI, no scleral icterus/injection Cardiac: RRR, no M/R/G Lungs: CTAB, regular breathing rate and effort Abd: soft, non distended, mild TTP lower quadrants Ext: no erythema/edema LE bilaterally Nuero: CN2-12 GI ASSESSMENT/PLAN Assessment/Plan Pt is a 52yo female admitted for pyelonephritis 1. Pyelonephritis- pt has been on Ceftriaxone. Has remained afebrile, will transition to Ciprofloxacin today 2. Adrenal mass- 7.5cm. Urine metanephrines ordered today. Surgery consulted for possible biopsy 3. Acute renal failure- 2/2 dehdyration, improving 4. Severe PEM 5. Suspected sepsis- resolved. 6. Hx of HTN- currently normotensive off of medication Problems: TISHA GUNN MD Aug 24, 2017 08:36
[2017-08-24] MEDS: CIPROFLOXACIN HCL 250 MG TABLET. PO SCH ×2 (09:18→20:10)
--- NOTE | 2017-08-24 13:20 | PDOC2 ---
SONDRA PARRA [employer] 08/24/17 1320: CONSULT Date of Consult Date of Consult DATE: 08/24/17 TIME: 13:14 Reason for Consult Reason for Consult: adrenal mass Referring Physician Referring Physician: Dr Nolan Identification/Chief Complaint Chief Complaint UTI Problems: Source Source: Chart review, Patient History of Present Illness Reason for Visit: Family translates for patient. Admitted for worsening UTI symptoms. Found to have pyelonephritis and ROBYN. Improving now. Incidental adrenal mass found 7.5 cm. Past Medical History Cardiovascular: No pertinent hx Past Surgical History Past Surgical History: Hysterectomy Family History Family History: No Significant Social History No ALCOHOL: none Drugs: None Lives: with Family Current Medications Current Medications Current Medications Fentanyl Citrate (Fentanyl 2ml Vial) 50 mcg 1X ONCE IV Last administered on 08:00; Start 08/21/17 at 08:00; Stop 08/21/17 at 08:01; Status DC Ondansetron HCl (Zofran) 4 mg 1X ONCE IV Last administered on 08/21/17 08:00 ; Start 08/21/17 at 08:00; Stop 08/21/17 at 08:01; Status DC Sodium Chloride 1,000 ml @ 1,000 mls/hr 1X ONCE IV Last administered on 09:07; Start 08/21/17 at 09:15; Stop 08/21/17 at 10:14; Status DC Ceftriaxone Sodium 50 ml @ 100 mls/hr 1X ONCE IV Last administered on 09:41; Start 08/21/17 at 09:30; Stop 08/21/17 at 09:59; Status DC Ondansetron HCl (Zofran) 4 mg PRN Q8HRS PRN IV NAUSEA/VOMITING; Start 08/21/17 at 10:45; Stop 08/22/17 at 10:44; Status DC Sodium Chloride 1,000 ml @ 125 mls/hr Q8H IV Last administered on 08/21/17 14 :32; Start 08/21/17 at 11:50; Stop 08/21/17 at 19:49; Status DC Acetaminophen/ Hydrocodone Bitart (Lortab 5/325) 1 tab PRN Q4HRS PRN PO MILD PAIN, 2ND CHOICE Last administered on 08/24/17 09:22; Start 08/21/17 at 12:00 Acetaminophen/ Hydrocodone Bitart (Lortab 5/325) 2 tab PRN Q4HRS PRN PO MODERATE PAIN, SEVERE PAIN Last administered on 08/22/17 08:04; Start 08/21/17 at 12:00 Ceftriaxone Sodium 1 gm/ Sodium Chloride 50 ml @ 100 mls/hr Q24H IV Last administered on 08/23/17 08:44; Start 08/22/17 at 09:00; Stop 08/24/17 at 08:35 ; Status DC Sodium Chloride 500 ml @ 500 mls/hr 1X ONCE IV Last administered on 12:29; Start 08/21/17 at 12:30; Stop 08/21/17 at 13:29; Status DC Sodium Chloride 1,000 ml @ 125 mls/hr Q8H IV Last administered on 08/24/17 05 :59; Start 08/22/17 at 13:00 Iohexol (Omnipaque 300 Mg/ml) 60 ml 1X ONCE IV Last administered on 08/23/17 09:37; Start 08/23/17 at 07:00; Stop 08/23/17 at 07:01; Status DC Info (Do NOT chart on this entry -- for MONITORING) 1 each PRN DAILY PRN MC SEE COMMENTS; Start 08/23/17 at 06:30; Stop 08/24/17 at 08:38; Status DC Iohexol (Omnipaque 300 Mg/ml) 60 ml 1X ONCE IV ; Start 08/23/17 at 08:30; Stop 08/23/17 at 08:32; Status DC Iohexol (Omnipaque 300 Mg/ml) 75 ml 1X ONCE IV ; Start 08/23/17 at 09:15; Stop 08/23/17 at 09:17; Status DC Info (Do NOT chart on this entry -- for MONITORING) 1 each PRN DAILY PRN MC SEE COMMENTS; Start 08/23/17 at 09:30; Stop 08/25/17 at 09:29 Ciprofloxacin (Cipro) 500 mg BID PO Last administered on 08/24/17 09:18; Start 08/24/17 at 09:00 Active Scripts Active Colace (Docusate Sodium) 100 Mg Capsule 1 Cap PO BID Reported Ferrous Sulfate 325 Mg Tablet 325 Mg PO DAILY Diclofenac Sodium 75 Mg Tablet.dr 1 Tab PO BID Lisinopril 10 Mg Tablet 1 Tab PO DAILY Allergies Allergies: Coded Allergies: No Known Drug Allergies (Unverified , 01/04/16) ROS General: YES: Chills, Other (+fevers) PSYCHOLOGICAL ROS: No: Anxiety, Depression Eyes: No Blurry vision, No Double vision HEENT: No: Heacaches, Sore Throat Hematological and Lymphatic: No: Bleeding Problems, Blood Clots Respiratory: No: Cough, Shortness of breath Cardiovascular: No Chest Pain, No Palpitations Gastrointestinal: Yes Nausea, Yes Vomiting Genitourinary: YES Dysuria, No Hematuria Musculoskeletal: No Joint Pain, No Muscle Pain Neurological: No Memory Loss, No Numbness/Tingling Skin: No Pruritus, No Rash Physical Exam General: Alert, Oriented X3, Cooperative, No acute distress HEENT: PERRLA, Mucous membr. moist/pink Lungs: Clear to auscultation, Normal air movement Heart: Regular rate, Normal S1, Normal S2, No murmurs Abdomen: Soft, No tenderness Extremities: No clubbing, No cyanosis Skin: No rashes, No breakdown Neuro: Normal gait, Normal speech Psych/Mental Status: Mental status NL, Mood NL MUSCULOSKELETAL: No deformity, No swelling Vitals VITALS Vital Signs Date Time Temp Pulse Resp B/P (MAP) Pulse Ox O2 Delivery O2 Flow Rate FiO2 08/24/17 11:00 97.9 75 18 135/64 (87) 99 Room Air 97.9 Assessment/Plan Assessment/Plan adrenal mass--7.5 cm pyelonephritis, ROBYN recommend Endocrine follow up for full hormonal panel, pending those results then possible bx Can FU with Dr Rubio --pending those results OLIVIA RUBIO MD 08/24/17 1529: CONSULT Allergies Allergies: Coded Allergies: No Known Drug Allergies (Unverified , 01/04/16) Assessment/Plan Assessment/Plan Reviewed with Ms Parra; Incidentally found large R adrenal mass; needs full endocrine evaluation for functional adrenal tumors (pheo etc); if negative could then consider needle biopsy to eval for primary vs metastatic lesion; surgery may then be indicated pending the results of the adrenal workup SONDRA PARRA APRN Aug 24, 2017 13:20 OLIVIA RUBIO MD Aug 24, 2017 15:29
[2017-08-25 03:00] VITALS: BP 163/92
[2017-08-25 04:58] LABS: BASO % 1 % (0-3); EOS % 1 % (0-3); HEMATOCRIT 37.6 % (36.0-47.0); HEMOGLOBIN 12.3 g/dL (12.0-15.5); LYMPH # 1.2 x10^3/uL (1.0-4.8); LYMPH % 19 % (24-48); MEAN CORPUSCULAR HEMOGLOBIN 28 pg (25-35); MEAN CORPUSCULAR HGB CONC 33 g/dL (31-37); MEAN CORPUSCULAR VOLUME 85 fL (79-100); MONO % 14 % (0-9); NEUT % 65 % (31-73); PLATELET COUNT 262 x10^3/uL (140-400); RED BLOOD COUNT 4.45 x10^6/uL (3.50-5.40); RED CELL DISTRIBUTION WIDTH 14.6 % (11.5-14.5); WHITE BLOOD COUNT 6.2 x10^3/uL (4.0-11.0)
[2017-08-25 05:21] LABS: ALBUMIN 2.3 g/dL (3.4-5.0); ALBUMIN/GLOBULIN RATIO 0.5 (1.0-1.7); CALCIUM 8.8 mg/dL (8.5-10.1); CREATININE 0.7 mg/dL (0.6-1.0); GFR 88.6; TOTAL BILIRUBIN 0.3 mg/dL (0.2-1.0); TOTAL PROTEIN 7.2 g/dL (6.4-8.2)
[2017-08-25 07:00] VITALS: BP 168/87
[2017-08-25] MEDS: CIPROFLOXACIN HCL 250 MG TABLET. PO SCH (08:34)
[2017-08-25] MEDS: IV NORMAL SALINE 1000ML BAG 1,000 ML IV SCH (08:35)
[2017-08-25 11:00] VITALS: BP 174/96
[2017-08-25] MEDS: HYDROcodone/APAP 5/325MG 1 TAB TABLET PO PRN (11:08)
[2017-08-25] MEDS ORDERED: HYDR-2758 PO (11:11)
[2017-08-25] MEDS ORDERED: TRIA1TAB3 PO (11:11)
[2017-08-25] MEDS ORDERED: CIPR250T30 PO (11:11)
--- NOTE | 2017-08-25 11:21 | PDOC3 ---
Discharge Summary* Date of Admission: Aug 21, 2017 Date of Discharge: Aug 25, 2017 Admitting Diagnosis Pyelonephritis Problems: Final Diagnosis Pyelonephritis, Incidental adrenal mass, Acute renal failure- resolved, Severe PEM, Suspected sepsis- resolved, HTN CONSULTS Surgery Procedures U/S- incidental masslike echogenicity with vascular flow in region of liver 6.7cm, could be liver or suprarenal mass CT Abdomen/pelvis- 7.5cm right indeterminate adrenal mass. Consider metastatic disease, large atypical adenoma, pheo or adrenocortical carcinoma. Percutaneous biopsy could establish diagnosis. Correlate for right pyelonephritis, correlate for constipation, small umbilical hernia containing only fat Brief Hospital Course DISCHARGE PHYSICAL EXAM GEN: NAD, AOx3 HEENT: MMM, EOMI, no scleral icterus/injection Cardiac: RRR, no M/R/G Lungs: CTAB, regular breathing rate and effort Abd: soft, non distended, mild TTP lower quadrants Ext: no erythema/edema LE bilaterally Nuero: CN2-12 GI Pt is a 52yo female admitted for pyelonephritis 1. Pyelonephritis- pt was receiving Ceftriaxone initially and then transitioned to Ciprofloxacin. Pt has been afebrile for >24H. Will d/c with 10 days of Cipro with instructions to f/u with Dr. Mcneal in the next week 2. Adrenal mass- incidental, 7.5cm. Urine metanephrines collection will be done at 11am. Surgery has seen and would like pt to complete workup before consider biopsy/surgery. Will put in consult outpatient as patient is currently stable. Will follow up on metanephrine results and forward to specialist. 3. Acute renal failure- 2/2 dehdyration and pyelonephritis. Resolved 4. Severe PEM 5. Suspected sepsis- resolved. 6. Hx of HTN- pt was hypo to normotensive due to sepsis. Now that sepsis has resolved, BP elevated again. Will discharge on home medications of Lisinopril 10mg and Triamterene/HCTZ 20/25mg Disposition/Orders: D/C to Home CONDITION AT DISCHARGE: Improved, Stable Diet: Cardiac Scheduled Diclofenac Sodium (Diclofenac Sodium), 1 TAB PO BID, (Reported) Docusate Sodium (Colace), 1 CAP PO BID Ferrous Sulfate (Ferrous Sulfate), 325 MG PO DAILY, (Reported) Lisinopril (Lisinopril), 1 TAB PO DAILY, (Reported) PCP Follow up with Dr. Mcneal within the next 7 days. Will set up outpatient referral to Endocrinology Time Spent Total time spent with patient [] minutes for coordination of care, counseling, and education. TISHA GUNN MD Aug 25, 2017 11:21
[2017-08-29 08:26] LABS: METANEPH UR <10 ug/L (Undefined); NORMETANEPHRINES UR 53 ug/L (Undefined); TOTAL METANEPHRINES UR <46 ug/24 hr (45-290)
== END 2017-08-25 13:10 | disposition home or self-care (01) | DRG 871 ==
LOC: ER 07:26 → 5 NORTH 09:35 → OBSVTOIN 11:52
PROVIDERS: ADMIT Family Medicine; ATTEND Family Medicine
DX: A41.9 Sepsis, unspecified organism (principal); E43 Unspecified severe protein-calorie malnutrition; N17.0 Acute kidney failure with tubular necrosis; N12 Tubulo-interstitial nephritis, not specified as acute or chronic; E27.8 Other specified disorders of adrenal gland; I10 Essential (primary) hypertension; Z98.51 Tubal ligation status; Z86.2 Personal history of diseases of the blood and blood-forming organs and certain disorders involving the immune mechanism; Z90.710 Acquired absence of both cervix and uterus; Z68.35 Body mass index [BMI] 35.0-35.9, adult; Z71.89 Other specified counseling
CPT/HCPCS: 36415; 74178; 76770; 80053; 81001; 81025; 83605; 83835; 85007; 85025; 87040; 87086; 96361; 96365; 96375; G0378; G0379; J0690; J0696; J2405; J3010; J7030; J7040; Q9967; 99285-25